=== PATIENT | female | born 1935 | race Caucasian/White ===

== ENCOUNTER 2019-01-20 10:49 | Outpatient (RCR) | payer MEDICARE, OTHER ==
[~2019-01-20 10:49] MED LIST: ACHD5005 PO; AMIT25TA9 PO; ASP325TEC PO; ATEN50TA PO; CALC-80 PO; FERR240T9 PO; MAGN250T7 PO; MULT-974 PO
== END 2019-04-20 | disposition home or self-care (01) ==
LOC: CARD 10:49
PROVIDERS: ATTEND Physician Assistant
DX: R07.89 Other chest pain (principal); I25.10 Atherosclerotic heart disease of native coronary artery without angina pectoris; E78.2 Mixed hyperlipidemia; I10 Essential (primary) hypertension
CPT/HCPCS: 93225; 93226

== ENCOUNTER → 2019-01-23 | Outpatient (CLI) | payer MEDICARE, OTHER | LOC: CARD 11:25 | PROVIDERS: ATTEND Physician Assistant | DX: R07.89 Other chest pain (principal); I25.10 Atherosclerotic heart disease of native coronary artery without angina pectoris; E78.2 Mixed hyperlipidemia; I10 Essential (primary) hypertension; I08.3 Combined rheumatic disorders of mitral, aortic and tricuspid valves | CPT/HCPCS: 93306 ==

== ENCOUNTER 2021-02-21 13:18 | Outpatient (RCR) | payer MEDICARE, OTHER | END 2021-04-25 11:16 | disposition home or self-care (01) | LOC: ONC 13:18 | PROVIDERS: ATTEND Internal Medicine Hematology & Oncology | DX: C50.919 Malignant neoplasm of unspecified site of unspecified female breast (principal); I25.10 Atherosclerotic heart disease of native coronary artery without angina pectoris; I10 Essential (primary) hypertension; E78.2 Mixed hyperlipidemia; Z85.3 Personal history of malignant neoplasm of breast | CPT/HCPCS: 99214 ==